=== PATIENT | female | born 1935 | race African-American/Black ===

== ENCOUNTER 2018-03-20 14:56 | Emergency (ER) | payer BC, MEDICARE ==
[~2018-03-20] VITALS: Ht 157.5 cm; Wt 50.0 kg
[~2018-03-20 14:56] MED LIST: ASA; ZYLOPRIM; [UNRECOGNIZED DRUG - OTHER]; [UNRECOGNIZED DRUG - OTHER]
[2018-03-20 15:09] VITALS: BP 155/73
== END 2018-03-20 19:40 | disposition left against medical advice (07) ==
LOC: ER 14:56
DX: L98.9 Disorder of the skin and subcutaneous tissue, unspecified (principal); Z53.21 Procedure and treatment not carried out due to patient leaving prior to being seen by health care provider